=== PATIENT | female | born 1950 | race Caucasian/White ===

== ENCOUNTER 2021-12-08 16:15 | Emergency (ER) | payer MEDICARE ==
[2021-12-08] MEDS ORDERED: Aspirin Chewable 81 MG TAB ONE (16:55)
[2021-12-08] MEDS ORDERED: Labetalol HCl 100 MG/20 ML VIAL ONE (16:55)
[2021-12-08 17:04] LABS: #Basophils 0.1 thou/uL (0.0-0.2); #Eosinphils 0.2 thou/uL (0.0-0.7); #Lymphocytes 1.1 thou/uL (1.20-3.40); #Monocytes 0.4 thou/uL (0.11-0.59); #Neutrophils 3.5 thou/uL (1.40-6.50); %Basophils 1.1 % (0.0-1.0); %Eosinophils 4.6 % (0.0-10.0); %Lymphocytes 20.1 % (21.0-51.0); %Monocytes 7.7 % (0.0-10.0); %Neutrophils 66.6 % (42.0-75.0); Hemoglobin 14.2 g/dL (12.0-16.0); Mean Corpuscular HGB CONC 31.7 g/dL (32.0-36.0); Mean Corpuscular Volume 91.7 fL (78.0-98.0); Mean Platelet Volume 7.7 fL (7.4-10.4); Platelet Count 219 thou/uL (130-400); RBC Distribution Width 14.7 % (11.5-14.5); Red Blood Cell (RBC) Count 4.89 mill/uL (4.20-5.40); White Blood Cell (WBC) Count 5.2 thou/uL (4.8-10.8)
[2021-12-08 17:05] LABS: Bilirubin Negative (Negative); Blood, Urine Trace (Negative); Clarity Clear (Clear); Glucose, Urine (Dipstick) >=1000 mg/dL (Negative); Ketone, Urine Negative (Negative); Leukocyte Negative (Negative); Nitrite Negative (Negative); Protein, Urine (Dipstick) > or equal to 300 mg/dL (Neg-Trace); Urobilinogen 0.2 mg/dL (Less than 2)
[2021-12-08 17:08] LABS: Prothrombin Time 22.9 sec (12.0-14.7)
[2021-12-08 17:09] LABS: PTT 37.8 sec (22.9-36.1)
[2021-12-08 17:16] LABS: RBC/HPF 0-3 HPF (0-3); Squamous Epithelial 0-3 HPF (0-3); WBC/HPF 0-3 HPF (0-3)
[2021-12-08 17:17] LABS: Bacteria/HPF 1+ HPF (None Seen)
[2021-12-08 17:17] LABS: ALT (SGPT) 13 U/L (8-55); AST (SGOT) 11 U/L (5-34); Albumin 4.2 g/dL (3.4-4.8); Alkaline Phosphatase 115 U/L (40-110); Anion Gap 17 mmol/L (10-20); BUN (Urea Nitrogen) 20 mg/dL (9.8-20.1); Bilirubin, Total 0.5 mg/dL (0.2-1.2); Calc. Creatinine Clearance 0 mL/min (70-130); Calcium 10.3 mg/dL (7.8-10.44); Carbon Dioxide 27 mmol/L (23-31); Chloride 100 mmol/L (98-107); Estimated GFR 36; Globulin 3.6 g/dL (2.4-3.5); Glucose 354 mg/dL (80-115); Potassium 4.6 mmol/L (3.5-5.1); Protein, Total 7.8 g/dL (5.8-8.1); Sodium 139 mmol/L (136-145)
[2021-12-08 17:26] LABS: MDiff Complete? YES
== END 2021-12-08 17:15 | disposition short-term general hospital (02) ==
LOC: BURERS 16:15
DX: I63.9 Cerebral infarction, unspecified (principal); E11.65 Type 2 diabetes mellitus with hyperglycemia; I10 Essential (primary) hypertension; E78.5 Hyperlipidemia, unspecified
CPT/HCPCS: 36416; 51701; 70450; 80053; 81003; 81015; 84484; 85025; 85610; 85730; 93005; 94760; 96374; 36415-59

== ENCOUNTER 2021-12-16 14:50 | Inpatient (IN) | payer MEDICARE, BC ==
[2021-12-16 15:20] VITALS: BMI 39.2
[2021-12-16] MEDS ORDERED: Acetaminophen 325 MG TAB PO PRN (16:03)
[2021-12-16] MEDS ORDERED: Acetaminophen 650 MG Suppository PR PRN (16:04)
[2021-12-16] MEDS ORDERED: Ondansetron ODT 4 MG TAB PO PRN (16:05)
[2021-12-16] MEDS ORDERED: Ondansetron PF 4 MG/2 ML Vial IVP PRN (16:05)
[2021-12-16] MEDS ORDERED: Calcium Carbonate 500 MG ChewTAB PO PRN (16:06)
[2021-12-16] MEDS ORDERED: Zolpidem Tartrate 5 MG TAB PO PRN (16:07)
[2021-12-16] MEDS ORDERED: Loperamide HCl 2 MG CAP PO PRN ×2 (16:07)
[2021-12-16] MEDS ORDERED: Senokot S 8.6-50 MG TAB PO PRN (16:07)
[2021-12-16] MEDS ORDERED: HYDROcodone/Acetaminophen 5/325 mg Tablet PO PRN ×2 (16:15)
[2021-12-16] MEDS ORDERED: Albuterol 200 PUFF (6.7GM INHALER) INH PRN (18:03)
[2021-12-16] MEDS ORDERED: Nitroglycerin 0.4 MG TAB (25 Tab Bottle) SL PRN (18:03)
[2021-12-16] MEDS ORDERED: Dextrose 50% Abboject 50 ML SYRINGE SLOW IVP PRN (18:18)
[2021-12-16] MEDS ORDERED: Dextrose 5% in Water 1,000 ML IV PRN (18:18)
[2021-12-16] MEDS ORDERED: Communication Order-Pharmacy FS SCH (18:39)
[2021-12-16] MEDS ORDERED: Melatonin 3 MG TAB PO PRN (19:06)
[2021-12-16 19:14] LABS: Hemoglobin 11.9 g/dL (12.0-16.0); Platelet Count 248 thou/uL (130-400)
[2021-12-16] MEDS: Atorvastatin Calcium 40 MG TAB PO SCH (20:48)
[2021-12-16] MEDS: Lantus 1000 UNITS/10 ML VIAL SC SCH (20:49)
[2021-12-16] MEDS: levETIRAcetam 250 MG TAB PO SCH (20:56)
[2021-12-17 05:40] LABS: #Basophils 0.1 thou/uL (0.0-0.2); #Lymphocytes 1.3 thou/uL (1.20-3.40); #Monocytes 0.5 thou/uL (0.11-0.59); #Neutrophils 5.7 thou/uL (1.40-6.50); %Basophils 0.8 % (0.0-1.0); %Eosinophils 0.5 % (0.0-10.0); %Lymphocytes 17.6 % (21.0-51.0); %Neutrophils 75.1 % (42.0-75.0); Hemoglobin 11.5 g/dL (12.0-16.0); Mean Corpuscular HGB CONC 33.1 g/dL (32.0-36.0); Mean Corpuscular Volume 90.7 fL (78.0-98.0); Mean Platelet Volume 10.4 fL (7.4-10.4); Platelet Count 235 thou/uL (130-400); RBC Distribution Width 13.8 % (11.5-14.5); Red Blood Cell (RBC) Count 3.82 mill/uL (4.20-5.40); White Blood Cell (WBC) Count 7.5 thou/uL (4.8-10.8)
[2021-12-17 05:53] LABS: Anion Gap 14 mmol/L (10-20); BUN (Urea Nitrogen) 31 mg/dL (9.8-20.1); Calc. Creatinine Clearance 66 mL/min (70-130); Calcium 9.7 mg/dL (7.8-10.44); Carbon Dioxide 25 mmol/L (23-31); Chloride 101 mmol/L (98-107); Estimated GFR 43; Glucose 280 mg/dL (80-115); Potassium 4.5 mmol/L (3.5-5.1); Sodium 135 mmol/L (136-145)
[2021-12-17 06:26] LABS: Prothrombin Time 13.6 sec (12.0-14.7)
[2021-12-17] MEDS: Allopurinol 100 MG TAB PO SCH (08:57)
[2021-12-17] MEDS: Amlodipine 5 MG TAB PO SCH (08:58)
[2021-12-17] MEDS: levETIRAcetam 250 MG TAB PO SCH ×2 (08:59→20:51)
[2021-12-17] MEDS: Bupropion 150 MG XL TAB PO SCH (09:00)
[2021-12-17] MEDS: Aspirin 81 mg Enteric Coated Tablet PO SCH (09:01)
[2021-12-17] MEDS: predniSONE 20 MG TAB PO SCH (09:01)
[2021-12-17] MEDS: Ferrous Sulfate 325 MG TAB PO SCH (09:01)
[2021-12-17] MEDS: Torsemide 20 MG TAB PO SCH (09:02)
[2021-12-17] MEDS: Lisinopril 20 MG TAB PO SCH (09:03)
[2021-12-17] MEDS: Carvedilol 6.25 MG TAB PO SCH ×2 (09:04→16:10)
[2021-12-17] MEDS: Insulin Regular 300 UNITS/3 ML VIAL SC PRN ×3 (09:07→16:13)
[2021-12-17] MEDS: traMADol HCl 50 MG TAB PO PRN ×2 (12:51→20:57)
[2021-12-17] MEDS ORDERED: Warfarin Sodium 5 MG TAB PO SCH (17:00)
[2021-12-17] MEDS: Lantus 1000 UNITS/10 ML VIAL SC SCH (20:51)
[2021-12-17] MEDS: Atorvastatin Calcium 40 MG TAB PO SCH (20:57)
[2021-12-18 05:59] LABS: Prothrombin Time 13.3 sec (12.0-14.7)
[2021-12-18] MEDS: levETIRAcetam 250 MG TAB PO SCH ×2 (09:27→20:41)
[2021-12-18] MEDS: Allopurinol 100 MG TAB PO SCH (09:27)
[2021-12-18] MEDS: Amlodipine 5 MG TAB PO SCH (09:32)
[2021-12-18] MEDS: Bupropion 150 MG XL TAB PO SCH (09:33)
[2021-12-18] MEDS: Torsemide 20 MG TAB PO SCH (09:33)
[2021-12-18] MEDS: Aspirin 81 mg Enteric Coated Tablet PO SCH (09:33)
[2021-12-18] MEDS: predniSONE 20 MG TAB PO SCH (09:34)
[2021-12-18] MEDS: Ferrous Sulfate 325 MG TAB PO SCH (09:34)
[2021-12-18] MEDS: Carvedilol 6.25 MG TAB PO SCH ×2 (09:34→17:04)
[2021-12-18] MEDS: Lisinopril 20 MG TAB PO SCH (09:39)
[2021-12-18] MEDS: Insulin Regular 300 UNITS/3 ML VIAL SC PRN ×3 (12:37→20:43)
[2021-12-18] MEDS ORDERED: Warfarin Sodium 2.5 MG TAB PO SCH (17:00)
[2021-12-18] MEDS: Atorvastatin Calcium 40 MG TAB PO SCH (20:42)
[2021-12-18] MEDS: Lantus 1000 UNITS/10 ML VIAL SC SCH (20:44)
[2021-12-19 05:15] LABS: Hemoglobin 11.1 g/dL (12.0-16.0); Platelet Count 241 thou/uL (130-400)
[2021-12-19 05:21] LABS: Prothrombin Time 13.1 sec (12.0-14.7)
[2021-12-19] MEDS: levETIRAcetam 250 MG TAB PO SCH ×2 (08:39→20:58)
[2021-12-19] MEDS: Bupropion 150 MG XL TAB PO SCH (08:41)
[2021-12-19] MEDS: Lisinopril 20 MG TAB PO SCH (08:41)
[2021-12-19] MEDS: Allopurinol 100 MG TAB PO SCH (08:41)
[2021-12-19] MEDS: Aspirin 81 mg Enteric Coated Tablet PO SCH (08:41)
[2021-12-19] MEDS: predniSONE 20 MG TAB PO SCH (08:42)
[2021-12-19] MEDS: Carvedilol 6.25 MG TAB PO SCH ×2 (08:42→17:56)
[2021-12-19] MEDS: Amlodipine 5 MG TAB PO SCH (08:42)
[2021-12-19] MEDS: Ferrous Sulfate 325 MG TAB PO SCH (08:43)
[2021-12-19] MEDS: Torsemide 20 MG TAB PO SCH (08:43)
[2021-12-19] MEDS: Insulin Regular 300 UNITS/3 ML VIAL SC PRN ×3 (08:46→17:59)
[2021-12-19] MEDS ORDERED: Warfarin Sodium 2.5 MG TAB PO SCH (17:00)
[2021-12-19] MEDS: Warfarin Sodium 5 MG TAB PO SCH (17:57)
[2021-12-19] MEDS: Atorvastatin Calcium 40 MG TAB PO SCH (20:58)
[2021-12-19] MEDS: Lantus 1000 UNITS/10 ML VIAL SC SCH (20:59)
[2021-12-19] MEDS ORDERED: Dextrose 5% in Water 1,000 ML IV PRN (21:20)
[2021-12-19] MEDS ORDERED: Dextrose 50% Abboject 50 ML SYRINGE SLOW IVP PRN (21:20)
[2021-12-19] MEDS ORDERED: HumaLOG 300 UNITS/3 ML VIAL SC SCH (22:30)
[2021-12-20] MEDS: levETIRAcetam 250 MG TAB PO SCH ×2 (11:42→20:43)
[2021-12-20] MEDS: Allopurinol 100 MG TAB PO SCH (11:43)
[2021-12-20] MEDS: traMADol HCl 50 MG TAB PO PRN ×2 (11:43→20:48)
[2021-12-20] MEDS: Bupropion 150 MG XL TAB PO SCH (11:44)
[2021-12-20] MEDS: Amlodipine 5 MG TAB PO SCH (11:44)
[2021-12-20] MEDS: Carvedilol 6.25 MG TAB PO SCH ×2 (11:44→18:05)
[2021-12-20] MEDS: Ferrous Sulfate 325 MG TAB PO SCH (11:45)
[2021-12-20] MEDS: Lisinopril 20 MG TAB PO SCH (11:45)
[2021-12-20] MEDS: Torsemide 20 MG TAB PO SCH (11:45)
[2021-12-20] MEDS: Aspirin 81 mg Enteric Coated Tablet PO SCH (11:46)
[2021-12-20] MEDS: Insulin Regular 300 UNITS/3 ML VIAL SC PRN ×2 (11:46→18:06)
[2021-12-20 16:00] LABS: Prothrombin Time 13.4 sec (12.0-14.7)
[2021-12-20] MEDS: Warfarin Sodium 5 MG TAB PO SCH (18:06)
[2021-12-20] MEDS: Atorvastatin Calcium 40 MG TAB PO SCH (20:43)
[2021-12-20] MEDS: Lantus 1000 UNITS/10 ML VIAL SC SCH (20:45)
[2021-12-21 05:38] LABS: Prothrombin Time 13.7 sec (12.0-14.7)
[2021-12-21] MEDS ORDERED: Polyethylene Glycol 3350 17 GM Packet PO PRN (07:52)
[2021-12-21] MEDS ORDERED: Lantus 1000 UNITS/10 ML VIAL SC SCH (09:00)
[2021-12-21] MEDS: levETIRAcetam 250 MG TAB PO SCH ×2 (09:57→20:41)
[2021-12-21] MEDS: Lisinopril 20 MG TAB PO SCH (09:57)
[2021-12-21] MEDS: Allopurinol 100 MG TAB PO SCH (09:58)
[2021-12-21] MEDS: Torsemide 20 MG TAB PO SCH (09:58)
[2021-12-21] MEDS: Carvedilol 6.25 MG TAB PO SCH ×2 (09:58→18:58)
[2021-12-21] MEDS: Bupropion 150 MG XL TAB PO SCH (09:58)
[2021-12-21] MEDS: Ferrous Sulfate 325 MG TAB PO SCH (09:59)
[2021-12-21] MEDS: Aspirin 81 mg Enteric Coated Tablet PO SCH (09:59)
[2021-12-21] MEDS: Amlodipine 5 MG TAB PO SCH (09:59)
[2021-12-21] MEDS: Lantus 1000 UNITS/10 ML VIAL SC SCH ×2 (10:00→20:42)
[2021-12-21] MEDS: traMADol HCl 50 MG TAB PO PRN (13:07)
[2021-12-21] MEDS ORDERED: Warfarin Sodium 5 MG TAB PO SCH (17:00)
[2021-12-21 17:25] VITALS: TEMP 98.4
[2021-12-21 19:00] VITALS: BP 155/81
[2021-12-21] MEDS: Atorvastatin Calcium 40 MG TAB PO SCH (20:41)
[2021-12-21] MEDS ORDERED: Enoxaparin Sodium 100 MG/ML SYRINGE SC SCH (21:00)
[2021-12-21] MEDS ORDERED: Enoxaparin Sodium 30 MG/0.3 ML SYRINGE SC SCH (21:00)
== END 2021-12-21 20:59 | disposition home or self-care (01) | DRG 948 ==
LOC: BURMED 14:50
PROVIDERS: ADMIT Family Medicine; ATTEND Family Medicine
DX: R53.81 Other malaise (principal); R53.1 Weakness; Z20.822 Contact with and (suspected) exposure to COVID-19; N18.30 Chronic kidney disease, stage 3 unspecified; E11.22 Type 2 diabetes mellitus with diabetic chronic kidney disease; I48.0 Paroxysmal atrial fibrillation; K59.00 Constipation, unspecified; I12.9 Hypertensive chronic kidney disease with stage 1 through stage 4 chronic kidney disease, or unspecified chronic kidney disease; E78.5 Hyperlipidemia, unspecified; F32.A Depression, unspecified; F03.90 Unspecified dementia, unspecified severity, without behavioral disturbance, psychotic disturbance, mood disturbance, and anxiety; G89.29 Other chronic pain; Z96.653 Presence of artificial knee joint, bilateral; J44.9 Chronic obstructive pulmonary disease, unspecified; Z99.81 Dependence on supplemental oxygen; Z95.5 Presence of coronary angioplasty implant and graft; Z91.041 Radiographic dye allergy status; Z88.0 Allergy status to penicillin; I25.2 Old myocardial infarction; Z86.73 Personal history of transient ischemic attack (TIA), and cerebral infarction without residual deficits; Z88.2 Allergy status to sulfonamides; Z88.8 Allergy status to other drugs, medicaments and biological substances; Z95.0 Presence of cardiac pacemaker; Z98.1 Arthrodesis status; Z87.891 Personal history of nicotine dependence; Z82.49 Family history of ischemic heart disease and other diseases of the circulatory system
CPT/HCPCS: 36415; 36416; 80048; 85014; 85018; 85025; 85049; 85610; J1650; J1815; J7512; U0003; U0005

== ENCOUNTER 2022-06-22 17:53 | Emergency (ER) | payer MEDICARE, BC ==
[2022-06-22] MEDS ORDERED: Acetaminophen 325 MG TAB ONE (18:05)
[2022-06-22 18:29] LABS: #Eosinphils 0.1 thou/uL (0.0-0.7); #Lymphocytes 0.5 thou/uL (1.20-3.40); #Monocytes 0.5 thou/uL (0.11-0.59); #Neutrophils 6.3 thou/uL (1.40-6.50); %Basophils 0.6 % (0.0-1.0); %Eosinophils 1.7 % (0.0-10.0); %Lymphocytes 6.1 % (21.0-51.0); %Monocytes 7.3 % (0.0-10.0); %Neutrophils 84.4 % (42.0-75.0); Hemoglobin 12.7 g/dL (12.0-16.0); Mean Corpuscular Hemoglobin 29.5 pg (27.0-31.0); Mean Corpuscular Volume 89.5 fl (78.0-98.0); Platelet Count 192 10x3/uL (130-400); RBC Distribution Width 12.3 % (11.5-14.5); White Blood Cell (WBC) Count 7.4 10x3/uL (4.8-10.8)
[2022-06-22 18:48] LABS: ALT (SGPT) 21 U/L (8-55); AST (SGOT) 14 U/L (5-34); Albumin 4.3 g/dL (3.4-4.8); Alkaline Phosphatase 99 U/L (40-110); Anion Gap 16 mmol/L (10-20); BUN (Urea Nitrogen) 29 mg/dL (9.8-20.1); Bilirubin, Total 0.3 mg/dL (0.2-1.2); CK (CPK) 57 U/L (29-168); Calc. Creatinine Clearance 0 mL/min (70-130); Calcium 9.6 mg/dL (7.8-10.44); Carbon Dioxide 30 mmol/L (23-31); Chloride 96 mmol/L (98-107); Estimated GFR 31; Globulin 3.2 g/dL (2.4-3.5); Glucose 208 mg/dL (80-115); Lipase 56 U/L (8-78); Magnesium 1.7 mg/dL (1.6-2.6); Potassium 4.1 mmol/L (3.5-5.1); Protein, Total 7.5 g/dL (5.8-8.1)
[2022-06-22] MEDS ORDERED: Ondansetron ODT 4 MG TAB ONE (18:54)
[2022-06-22 19:11] LABS: Sodium 138 mmol/L (136-145)
== END 2022-06-22 19:37 | disposition home or self-care (01) ==
LOC: BURERS 17:53
DX: U07.1 COVID-19 (principal); J06.9 Acute upper respiratory infection, unspecified; E78.5 Hyperlipidemia, unspecified; J44.9 Chronic obstructive pulmonary disease, unspecified; I25.10 Atherosclerotic heart disease of native coronary artery without angina pectoris; E11.22 Type 2 diabetes mellitus with diabetic chronic kidney disease; I13.0 Hypertensive heart and chronic kidney disease with heart failure and stage 1 through stage 4 chronic kidney disease, or unspecified chronic kidney disease; N18.4 Chronic kidney disease, stage 4 (severe)
CPT/HCPCS: 71045; 80053; 82550; 83690; 83735; 85025; 87081; 87430; 87804 ×2; U0003; U0005; 36415; Q0162

== ENCOUNTER 2024-05-08 23:42 | Emergency (ER) | payer MEDICARE, BC ==
[2024-05-09 00:17] LABS: #Basophils 0.1 thou/uL (0.0-0.2); #Eosinophils 0.1 thou/uL (0.0-0.7); #Lymphocytes 1.3 thou/uL (1.20-3.40); #Monocytes 0.5 thou/uL (0.11-0.59); #Neutrophils 7.7 thou/uL (1.40-6.50); %Basophils 0.6 % (0.0-1.0); %Eosinophils 0.5 % (0.0-10.0); %Lymphocytes 13.4 % (21.0-51.0); %Monocytes 5.2 % (0.0-10.0); %Neutrophils 80.3 % (42.0-75.0); Hematocrit 42.8 % (36.0-47.0); Hemoglobin 14.4 g/dL (12.0-16.0); Mean Corpuscular HGB CONC 33.5 g/dL (32.0-36.0); Mean Corpuscular Hemoglobin 28.7 pg (27.0-31.0); Mean Corpuscular Volume 85.7 fl (78.0-98.0); Mean Platelet Volume 7.7 fL (7.4-10.4); Platelet Count 232 10x3/uL (130-400); RBC Distribution Width 11.9 % (11.5-14.5); White Blood Cell (WBC) Count 9.6 10x3/uL (4.8-10.8)
[2024-05-09] MEDS ORDERED: Insulin Regular, Human 100 UNIT/ML 10 ML VIAL ONE (00:18)
[2024-05-09 00:31] LABS: INR-International Normal Ratio 2.1; Prothrombin Time 23.4 sec (12.0-14.7)
[2024-05-09 00:32] LABS: Base Excess-Venous 3.3 mmol/L (-2.0 to 3.0); CO2 Tension (PvCO2) 46.6 mmHg (42.0-51.0); Chloride 93 mmol/L (98-107); Hemoglobin - Calc 16.2 g/dL (12.0-16.0); PTT 34.2 sec (22.9-36.1); Potassium 4.1 mmol/L (3.5-5.1); Sodium 136 mmol/L (138-145); T. Carbon Dioxide 30.4 mmol/L (22.0-28.0)
[2024-05-09 00:41] LABS: ALT (SGPT) 17 U/L (8-55); AST (SGOT) 14 U/L (5-34); Albumin 4.5 g/dL (3.4-4.8); Alkaline Phosphatase 100 U/L (40-110); Anion Gap 22 mmol/L (10-20); BUN (Urea Nitrogen) 42 mg/dL (9.8-20.1); Bilirubin, Total 0.3 mg/dL (0.2-1.2); Calc. Creatinine Clearance 0 mL/min (70-130); Calcium 10.6 mg/dL (7.8-10.44); Carbon Dioxide 26 mmol/L (23-31); Chloride 92 mmol/L (98-107); Estimated GFR 26; Potassium 4.1 mmol/L (3.5-5.1); Protein, Total 8.5 g/dL (5.8-8.1); Sodium 136 mmol/L (136-145)
[2024-05-09 00:42] LABS: Acetaminophen Less than 10 mcg/mL (Less than 10); Alcohol Less than 10.0 mg/dL (Less than 10); Salicylate Less than 8.0 mg/dL (Less than 8.0)
[2024-05-09 00:43] LABS: Critical Call Chemistry @0042 CCU.EM; Glucose 412 mg/dL (83-110)
[2024-05-09 00:47] LABS: Troponin I 0.021 ng/mL (< 0.028)
[2024-05-09 01:39] LABS: Bilirubin Negative (Negative); Blood, Urine Negative (Negative); Clarity Clear (Clear); Glucose, Urine (Dipstick) 500 mg/dL (Negative); Ketone, Urine Trace mg/dL (Negative); Leukocyte Trace (Negative); Nitrite Negative (Negative); Protein, Urine (Dipstick) 30 mg/dL (Neg-Trace); Urobilinogen 0.2 mg/dL (Less than 2); pH, Urine 5.5 (5.0-9.0)
[2024-05-09 01:46] LABS: CAUTI Indications for Culture Alt mental st,lethar; RBC/HPF 0-3 HPF (0-3); Squamous Epithelial 0-3 HPF (0-3)
[2024-05-09 01:47] LABS: Bacteria/HPF Rare-Few HPF (None Seen); Urine Culture Reflex No No
[2024-05-09 01:49] LABS: Amphetamine Not Detected (NotDetected); Barbiturates Screen Not Detected (NotDetected); Benzodiazepine Screen Not Detected (NotDetected); Cocaine Metabolite Screen Not Detected (NotDetected); Methadone Not Detected (NotDetected); Methamphetamine Not Detected (NotDetected); Opiate Screen Not Detected (NotDetected); Oxycodone Screen Not Detected (NotDetected); Phencyclidine (PCP) Not Detected (NotDetected); THC/Cannabinoid Screen Detected (NotDetected); Tricyclic Screen Not Detected (NotDetected)
== END 2024-05-09 03:25 | disposition short-term general hospital (02) ==
LOC: BURERS 23:42
DX: R41.82 Altered mental status, unspecified (principal); N28.9 Disorder of kidney and ureter, unspecified; J44.9 Chronic obstructive pulmonary disease, unspecified; I12.9 Hypertensive chronic kidney disease with stage 1 through stage 4 chronic kidney disease, or unspecified chronic kidney disease; I50.9 Heart failure, unspecified; N18.4 Chronic kidney disease, stage 4 (severe); E11.22 Type 2 diabetes mellitus with diabetic chronic kidney disease
CPT/HCPCS: 70450; 71045; 80053; 80306; 80307; 81001; 82330; 82435; 82803; 82962; 83880; 84132; 84295; 84484; 85014; 85025; 85610; 85730; 93005; 94760; 96361; 96374; 99285; J1815; 36416